=== PATIENT | male | born 1940 | race Caucasian/White ===

== ENCOUNTER 2021-09-07 11:51 | Emergency (ER) | payer OTHER, MEDICARE ==
--- NOTE | 2021-09-07 13:13 | RAD REPORT ---
EXAM DESCRIPTION: RAD - Hand Left 3 View - 09/07/2021 1:02 pm CLINICAL HISTORY: PAIN COMPARISON: No comparisons FINDINGS: No acute fracture. No malalignment. Mild interphalangeal joint space narrowing and scleros is. This is typical of osteoarthritis. IMPRESSION: No acute osseous abnormality involving the left hand.
--- NOTE | 2021-09-07 13:34 | EDPHYS ---
Physician Documentation [facility] Name: Keith Steele Age: 80 yrs Sex: Male : 1940 Arrival Date: 09/07/2021 Time: 11:54 Bed 5 Private MD: Emeka Robertson V ED Physician Jordan Oviedo HPI: 09/07 13:28 This 80 yrs old Male presents to ER via Ambulatory with complaints of Finger marito Injury. 13:28 Trauma demographics: County: The injury occurred in [place]. Mechanism of injury: marito multiple small lacerations yesterday. Associated injuries: The patient sustained decreased range of motion, laceration, 2 cm(s), painful injury. Onset: The symptoms/episode began/occurred yesterday. The patient has not experienced similar symptoms in the past. Historical: - Allergies: 12:01 No Known Allergies; iw - Home Meds: 12:01 None [Active]; iw - PMHx: 12:01 None; iw - Immunization history:: Last tetanus immunization: < 5 years ago. - Social history:: Smoking status: Patient denies any tobacco usage or history of. - Family history:: not pertinent. ROS: 13:28 Constitutional: Negative for fever, chills, and weight loss, Eyes: Negative for injury, marito pain, redness, and discharge, ENT: Negative for injury, pain, and discharge, Neck: Negative for injury, pain, and swelling, Cardiovascular: Negative for chest pain, palpitations, and edema, Respiratory: Negative for shortness of breath, cough, wheezing, and pleuritic chest pain, Abdomen/GI: Negative for abdominal pain, nausea, vomiting, diarrhea, and constipation, Back: Negative for injury and pain, : Negative for injury, bleeding, discharge, and swelling, Neuro: Negative for headache, weakness, numbness, tingling, and seizure, Psych: Negative for depression, anxiety, suicide ideation, homicidal ideation, and hallucinations, Allergy/Immunology: Negative for hives, rash, and allergies, Endocrine: Negative for neck swelling, polydipsia, polyuria, polyphagia, and marked weight changes, Hematologic/Lymphatic: Negative for swollen nodes, abnormal bleeding, and unusual bruising. 13:28 MS/extremity: Positive for decreased range of motion, laceration, pain, tenderness, of the dorsal aspect of distal phalanx of left index finger, dorsal aspect of middle phalanx of left index finger, palmar aspect of distal phalanx of left index finger, palmar aspect of middle phalanx of left index finger and left index fingernail. Exam: 13:28 Constitutional: This is a well developed, well nourished patient who is awake, alert, marito and in no acute distress. Head/Face: Normocephalic, atraumatic. Eyes: Pupils equal round and reactive to light, extra-ocular motions intact. Lids and lashes normal. Conjunctiva and sclera are non-icteric and not injected. Cornea within normal limits. Periorbital areas with no swelling, redness, or edema. ENT: Nares patent. No nasal discharge, no septal abnormalities noted. Tympanic membranes are normal and external auditory canals are clear. Oropharynx with no redness, swelling, or masses, exudates, or evidence of obstruction, uvula midline. Mucous membranes moist. Neck: Trachea midline, no thyromegaly or masses palpated, and no cervical lymphadenopathy. Supple, full range of motion without nuchal rigidity, or vertebral point tenderness. No Meningismus. Chest/axilla: Normal chest wall appearance and motion. Nontender with no deformity. No lesions are appreciated. Cardiovascular: Regular rate and rhythm with a normal S1 and S2. No gallops, murmurs, or rubs. Normal PMI, no JVD. No pulse deficits. Respiratory: Lungs have equal breath sounds bilaterally, clear to auscultation and percussion. No rales, rhonchi or wheezes noted. No increased work of breathing, no retractions or nasal flaring. Abdomen/GI: Soft, non-tender, with normal bowel sounds. No distension or tympany. No guarding or rebound. No evidence of tenderness throughout. Back: No spinal tenderness. No costovertebral tenderness. Full range of motion. Male : Normal genitalia with no discharge or lesions. Skin: Warm, dry with normal turgor. Normal color with no rashes, no lesions, and no evidence of cellulitis. Neuro: Awake and alert, GCS 15, oriented to person, place, time, and situation. Cranial nerves II-XII grossly intact. Motor strength 5/5 in all extremities. Sensory grossly intact. Cerebellar exam normal. Normal gait. Psych: Awake, alert, with orientation to person, place and time. Behavior, mood, and affect are within normal limits. 13:28 Musculoskeletal/extremity: Extremities: laceration, pain, tenderness. Vital Signs: 12:00 Pulse 73; Resp 16; Pulse Ox 100% on R/A; Weight 68.49 kg; Height 5 ft. 6 in. (167.64 iw cm); Pain 0/10; 13:20 BP 110 / 80; Pulse 72; Resp 17; Pulse Ox 100% ; Pain 2/10; jh6 14:40 BP 114 / 83; Pulse 74; Resp 17; Pulse Ox 100% ; Pain 2/10; jh6 12:00 Body Mass Index 24.37 (68.49 kg, 167.64 cm) iw MDM: 12:05 Patient medically screened. [facility] 13:32 Data reviewed: vital signs, nurses notes, radiologic studies, plain films. Data marito interpreted: moisture meter operator: rate is 73 beats/min, rhythm is regular, Pulse oximetry: on room air is 100 %. Test interpretation: by ED physician or midlevel provider: plain radiologic studies. Counseling: I had a detailed discussion with the patient and/or guardian regarding: the historical points, exam findings, and any diagnostic results supporting the discharge/admit diagnosis, lab results, radiology results. 09/07 12:05 Order name: Hand Left 3 View XRAY; Complete Time: 13:22 [facility] 09/07 13:27 Order name: Wound Care; Complete Time: 14:47 [facility] 09/07 13:27 Order name: Wound dressing; Complete Time: 14:47 marito Administered Medications: 14:33 Drug: KeFLEX (cephalexin) 500 mg Route: PO; bp 14:39 Follow up: Response: No adverse reaction 6 Disposition Summary: 09/07/21 13:34 Discharge Ordered Location: Home marito Problem: new marito Symptoms: have improved marito Condition: Stable marito Diagnosis - Laceration without foreign body of left index finger without damage to nail marito Followup: marito - With: Emeka Robertson MD - When: 2 - 3 days - Reason: Recheck today's complaints, Continuance of care, Re-evaluation by your physician Discharge Instructions: - Discharge Summary Sheet marito - Laceration Care, Adult marito - Laceration Care, Adult, [id number] marito Forms: - Medication Reconciliation Form marito - Thank You Letter marito - Antibiotic Education marito - Prescription Opioid Use [facility] Prescriptions: - Centany 2 % Topical ointment - apply 1 application by TOPICAL route 3 times per day; 15 gram; Refills: 0, [facility] Product Selection Permitted - Cephalexin 500 mg Oral Capsule - take 1 capsule by ORAL route every 6 hours for 7 days; 28 capsule; Refills: 0, [facility] Product Selection Permitted Signatures: Dispatcher [employer] Jordan Antoine MD MD cha Mickail, Joel, PA PA jmm Williams, Irene, RN RN Edward Lizarraga RN RN Neli Goldman RN jh6
--- NOTE | 2021-09-07 13:34 | ER ---
Nurse's Notes [facility] Name: Keith Steele Age: 80 yrs Sex: Male : 1940 Arrival Date: 09/07/2021 Time: 11:54 Bed 5 Private MD: Emeka Robertson V Diagnosis: Laceration without foreign body of left index finger without damage to nail Presentation: 09/07 12:00 Chief complaint: Patient states: cut left index finger with a handheld assistant service manager last iw night around 6 pm. Coronavirus screen: At this time, the client does not indicate any symptoms associated with coronavirus-19. Ebola Screen: Patient negative for fever greater than or equal to 101.5 degrees Fahrenheit, and additional compatible Ebola Virus Disease symptoms Patient denies exposure to infectious person. Patient denies travel to an Ebola-affected area in the 21 days before illness onset. No symptoms or risks identified at this time. Initial Sepsis Screen: Does the patient meet any 2 criteria? No. Patient's initial sepsis screen is negative. Does the patient have a suspected source of infection? No. Patient's initial sepsis screen is negative. Risk Assessment: Do you want to hurt yourself or someone else? Patient reports no desire to harm self or others. Onset of symptoms was September 06, 2021. 12:00 Method Of Arrival: Ambulatory iw 12:00 Acuity: ADELINE 4 iw Triage Assessment: 13:30 Injury Description: Avulsion sustained to lateral aspect of left fingers, dorsal aspect jh6 of distal phalanx of left index finger and left index fingernail. 14:43 Musculoskeletal: No deficits noted. 6 Historical: - Allergies: 12:01 No Known Allergies; iw - Home Meds: 12:01 None [Active]; iw - PMHx: 12:01 None; iw - Immunization history:: Last tetanus immunization: < 5 years ago. - Social history:: Smoking status: Patient denies any tobacco usage or history of. - Family history:: not pertinent. Screenin:26 Abuse screen: Denies threats or abuse. Nutritional screening: No deficits noted. jh6 Tuberculosis screening: No symptoms or risk factors identified. 13:20 Fall Risk None identified. 6 Assessment: 12:18 General: Appears in no apparent distress. comfortable, Behavior is calm, cooperative. jh6 Pain: Complains of pain in dorsal aspect of distal phalanx of left index finger and left index fingernail Pain currently is 5 out of 10 on a pain scale. Derm: Wound noted dorsal aspect of distal phalanx of left index finger. Vital Signs: 12:00 Pulse 73; Resp 16; Pulse Ox 100% on R/A; Weight 68.49 kg; Height 5 ft. 6 in. (167.64 iw cm); Pain 0/10; 13:20 BP 110 / 80; Pulse 72; Resp 17; Pulse Ox 100% ; Pain 2/10; jh6 14:40 BP 114 / 83; Pulse 74; Resp 17; Pulse Ox 100% ; Pain 2/10; jh6 12:00 Body Mass Index 24.37 (68.49 kg, 167.64 cm) ED Course: 11:54 Patient arrived in ED. am2 11:55 Emeka Robertson MD is Private Physician. am2 12:01 Triage completed. iw 12:02 Arm band placed on. 12:05 Jordan Oviedo MD is Attending Physician. [facility] 12:17 Neli Goldman, RN is Primary Nurse. [facility] 13:00 Call light in reach. Side rails up X 1. 6 13:02 Hand Left 3 View XRAY In Process Unspecified. EDMA 13:33 Emeka Robertson MD is Referral Physician. [facility] 14:00 No provider procedures requiring assistance completed. 6 14:40 Dressings: Tube gauze X 1; left hand. jh6 14:42 Patient did not have IV access during this emergency room visit. 6 Administered Medications: 14:33 Drug: KeFLEX (cephalexin) 500 mg Route: PO; bp 14:39 Follow up: Response: No adverse reaction 6 Outcome: 13:34 Discharge ordered by . [facility] 14:41 Discharged to home ambulatory. 6 14:41 Condition: improved 14:41 Discharge instructions given to patient, Instructed on discharge instructions, follow up and referral plans. Demonstrated understanding of instructions, follow-up care, medications, Prescriptions given X 2. 14:47 Patient left the ED. 6 Signatures: Dispatcher [employer] EDMS Jordan Oviedo MD MD cha Williams, Irene, RN RN Geovanna Ku am2 Edward Lizarraga RN RN Neli Goldman RN RN 6 Corrections: (The following items were deleted from the chart) 12:02 12:00 Pulse 73bpm; Resp 16bpm; Pulse Ox 100% RA; 68.49 kg; Height 5 ft. 6 in.; BMI: iw 24.3; Pain 0/10; iw
[2021-09-07] MEDS ORDERED: CEPHALEXIN 250 MG CAP ONE (14:29)
[2021-09-07 14:54] VITALS: O2SAT 100
[2021-09-07 14:57] VITALS: BP 114/83
== END 2021-09-07 14:47 | disposition home or self-care (01) ==
LOC: ER 11:51
DX: S61.211A Laceration without foreign body of left index finger without damage to nail, initial encounter (principal)
CPT/HCPCS: 99283